=== PATIENT | female | born 1955 | race Caucasian/White ===

== ENCOUNTER → 2018-05-03 | Outpatient (CLI) | payer OTHER ==
--- NOTE | 2018-05-03 17:20 | BD ---
EXAMINATION TYPE: Axial Bone Density DATE OF EXAM: 05/03/2018 COMPARISON: 11.01.2015 CLINICAL HISTORY: 62 YR OLD FEMALE.....ICD-10 CODE: Z13.820 OSTEOPOROSIS SCREEN Height: 65.2 Weight: 180 FRAX RISK QUESTIONS: NOTHING TO NOTE HERE RISK FACTORS HISTORY OF: HX OF ANKLE FX....< 50 YRS OLD History of Wrist Fracture: YES, UNDER 50 YRS OLD Active: YES Diet low in dairy products/other sources of calcium: NO Postmenopausal woman: YES AT AGE 48 MEDICATIONS: Additional Medications: CALCIUM AND VIT D Additional History: NONE TO NOTE EXAM MEASUREMENTS: Bone mineral densitometry was performed using the [employer] System. Bone mineral density as measured about the Lumbar spine is: ----- L1-L4(G/cm2): 0.907 T Score Values are as follows: ----- L1: -2.5 ----- L2: -3.2 ----- L3: -1.9 ----- L4: -1.8 ----- L1-L4: -2.3 Bone mineral density has: Increased 1.3% since study of: 11.01.2015 Bone mineral density about the R hip (g/cm2): 0.794 Bone mineral density about the L hip (g/cm2): 0.783 T Score values are as follows: -----R Neck: -1.8 -----L Neck: -1.9 -----R Total: -1.7 -----L Total: -1.8 Bone mineral density has: REMAINED THE SAME 0.0% since study of: 11.01.2015 FRAX%s: THERE IS A 15.8% CHANCE OF A MAJOR OSTEOPOROTIC FX AND A 2.0% FOR HIP FX.....PROBABILITY O F FX IN 10 YRS IMPRESSION: Osteopenia (T Score between -2.5 and -1). However, note that measurements border on osteoporosis in t he lumbar spine. There is slightly increased risk of fracture and the patient may be considered for treatment. Re-Screen 2-5 years. NOTE: T-SCORE=SD OF THE YOUNG ADULT MEAN.
--- NOTE | 2018-05-05 10:54 | MM ---
Reason for exam: screening (asymptomatic). Last mammogram was performed 2 years and 6 months ago. History: Patient is postmenopausal. Physical Findings: A clinical breast exam by your physician is recommended on an annual basis and results should be correlated with mammographic findings. MG 3D Screening Mammo W/Cad Bilateral CC and MLO view(s) were taken. Prior study comparison: November 05, 2015, right breast MG 3d work up w/cad RT. November 01, 2015, bilateral MG screening mammo w CAD. The breast tissue is heterogeneously dense. This may lower the sensitivity of mammography. There is no discrete abnormality. Benign bilateral axillary lymph nodes redemonstrated. ASSESSMENT: Negative, BI-RAD 1 RECOMMENDATION: Routine screening mammogram of both breasts in 1 year.
== END | disposition home or self-care (01) ==
LOC: RADMAMWWP 09:31
PROVIDERS: ATTEND Family Medicine
DX: Z12.31 Encounter for screening mammogram for malignant neoplasm of breast (principal); M81.0 Age-related osteoporosis without current pathological fracture; M85.89 Other specified disorders of bone density and structure, multiple sites; Z13.820 Encounter for screening for osteoporosis
CPT/HCPCS: 77063; 77067; 77080

== ENCOUNTER → 2020-08-26 | Outpatient (CLI) | payer OTHER ==
--- NOTE | 2020-08-26 16:28 | BD ---
EXAMINATION TYPE: Axial Bone Density DATE OF EXAM: 08/26/2020 COMPARISON: 05/03/2018 CLINICAL HISTORY: Height: 65 IN Weight: 184 LBS FRAX RISK QUESTIONS: Secondary Osteoporosis: 3. Menopause before 45: TOTAL HYST AGE 43 RISK FACTORS HISTORY OF: Active: YES Diet low in dairy products/other sources of calcium: YES Postmenopausal woman: TOTAL HYST AGE 43 MEDICATIONS: Osteoporosis Medications: NOT NOW Which medication: Fosamax How Lon YEARS Additional Medications: CALCIUM , VIT D, EXAM MEASUREMENTS: Bone mineral densitometry was performed using the [employer] System. Bone mineral density as measured about the Lumbar spine is: ----- L1-L4(G/cm2): 0.927 T Score Values are as follows: ----- L2: -3.3 ----- L3: -2.2 ----- L4: -0.9 ----- L1-L4: -2.1 Bone mineral density has: Increased 3.3% since study of: 05/03/2018 Bone mineral density about the R hip (g/cm2): 0.756 Bone mineral density about the L hip (g/cm2): 0.755 T Score values are as follows: -----R Neck: -2.0 -----L Neck: -2.0 -----R Total: -1.6 -----L Total: -1.9 Bone mineral density has: Decreased -0.4% since study of: 05/03/2018 IMPRESSION: Osteopenia (T Score between -2.5 and -1). There is slightly increased risk of fracture and the patient may be considered for treatment. Re-Screen 2-5 years. NOTE: T-SCORE=SD OF THE YOUNG ADULT MEAN.
--- NOTE | 2020-08-27 09:47 | MM ---
Reason for exam: screening (asymptomatic). Last mammogram was performed 2 years and 4 months ago. History: Patient is postmenopausal. Physical Findings: A clinical breast exam by your physician is recommended on an annual basis and results should be correlated with mammographic findings. MG 3D Screening Mammo W/Cad Bilateral CC and MLO view(s) were taken. Prior study comparison: May 03, 2018, bilateral MG 3d screening mammo w/cad. November 05, 2015, right breast MG 3d work up w/cad RT. The breast tissue is heterogeneously dense. This may lower the sensitivity of mammography. There is no discrete abnormality. No significant changes when compared with prior studies. ASSESSMENT: Negative, BI-RAD 1 RECOMMENDATION: Routine screening mammogram of both breasts in 1 year.
== END | disposition home or self-care (01) ==
LOC: RADMAMWWP 08:45
PROVIDERS: ATTEND Family Medicine
DX: Z12.31 Encounter for screening mammogram for malignant neoplasm of breast (principal); M85.80 Other specified disorders of bone density and structure, unspecified site; Z78.0 Asymptomatic menopausal state
CPT/HCPCS: 77063; 77067; 77080

== ENCOUNTER → 2022-09-10 | Outpatient (CLI) | payer MEDICARE ==
--- NOTE | 2022-09-10 17:51 | BD ---
EXAMINATION TYPE: Axial Bone Density DATE OF EXAM: 09/10/2022 CLINICAL HISTORY: 67 years year old Female. ICD-10 CODE: M85.80 DISORDER OF BONE DENSITY Height: 65 Weight: 184.5 FRAX RISK QUESTIONS: Alcohol (3 or more units per day): no Family History (Parent hip fracture): no Glucocorticoids (More than 3mos): no (Ex: prednisone, prednisolone, methylprednisolone, dexamethasone, and hydrocortisone). History of Fracture in Adulthood: yes Secondary Osteoporosis: 1. Type 1 Diabetes: no 2. Hyperthyroidism: no 3. Menopause before 45: yes 4. Malnutrition: no 5. Chronic liver disease: no Rheumatoid Arthritis: no Current Tobacco Use: no RISK FACTORS HISTORY OF: History of Wrist Fracture: yes When: many years ago Surgery to Spine/Hip(right/left)/Wrist (right/left): no Family History of Osteoporosis: no Active: yes Diet low in dairy products/other sources of calcium: yes Postmenopausal woman: yes Lost more than 2 inches in height since high school: no MEDICATIONS: Additional History: EXAM MEASUREMENTS: Bone mineral densitometry was performed using the [employer] System. Bone mineral density as measured about the Lumbar spine is: ----- L1-L4(G/cm2): 0.909 T Score Values are as follows: ----- L1: -2.2 ----- L2: -3.0 ----- L3: -2.2 ----- L4: -2.0 ----- L1-L4: -2.3 Bone mineral density has: decreased -1.9 % since study of: 08.26.2020 Bone mineral density about the R hip (g/cm2): 0.752 Bone mineral density about the L hip (g/cm2): 0.732 T Score values are as follows: -----R Neck: -2.1 -----L Neck: -2.2 -----R Total: -1.7 -----L Total: -2.0 Bone mineral density has: decreased -1.1 % since study of: 08.26.2020 FRAX%s: The graph provided illustrates a 18.8% chance for a major osteoporotic fx and a 3.4% chance f or the hips probability for fx in 10 years time. IMPRESSION: Osteopenia (T Score between -2.5 and -1). There is slightly increased risk of fracture and the patient may be considered for treatment. Re-Screen 2-5 years. NOTE: T-SCORE=SD OF THE YOUNG ADULT MEAN.
--- NOTE | 2022-09-11 08:44 | MM ---
Reason for Exam: Screening (asymptomatic). Last mammogram was performed 2 year(s) and 1 month(s) ago. Patient History: Menarche at age 15. First Full-Term at age 25. Left ovary removed at age 44. Right ovary removed at age 44. Hysterectomy at age 44. Postmenopausal. Risk Values: Lavern 5 year model risk: 1.4%. NCI Lifetime model risk: 4.9%. Prior Study Comparison: 11/05/2015 Right Diagnostic Mammogram, [facility]. 05/03/2018 Bilateral Screening Mammogram, [facility]. 08/26/2020 Bilateral Screening Mammogram, [facility]. Tissue Density: The breast tissue is heterogeneously dense. This may lower the sensitivity of mammography. Findings: Analyzed By CAD. There is no suspicious group of microcalcifications or new suspicious mass in either breast. No significant change from prior examination. Overall Assessment: Negative, BI-RAD 1 Management: Screening Mammogram of both breasts in 1 year. A clinical breast exam by your physician is recommended on an annual basis and results should be correlated with mammographic findings. Electronically signed and approved by: Emmanuel Shea D.O.
== END | disposition home or self-care (01) ==
LOC: RADBDWWP 16:08
PROVIDERS: ATTEND Family Medicine
DX: Z12.31 Encounter for screening mammogram for malignant neoplasm of breast (principal); M85.89 Other specified disorders of bone density and structure, multiple sites; Z78.0 Asymptomatic menopausal state; Z90.721 Acquired absence of ovaries, unilateral
CPT/HCPCS: 77063; 77067; 77080

== ENCOUNTER → 2023-10-20 | Outpatient (CLI) | payer MEDICARE ==
[2023-10-20 15:31] LABS: Basophils # (A) 0.04 X 10*3/uL (0.00-0.10); Basophils % (A) 0.9 %; Eosinophils # (A) 0.15 X 10*3/uL (0.04-0.35); Eosinophils % (A) 3.4 %; HCT 40.4 % (37.2-46.3); HGB 13.3 g/dL (12.0-15.0); Lymphocytes # (A) 1.41 X 10*3/uL (0.90-5.00); Lymphocytes % (A) 31.7 %; MCH 30.9 pg (27.0-32.0); MCHC 32.9 g/dL (32.0-37.0); Mean Platelet Volume 11.1 FL (9.5-12.2); Monocytes # (A) 0.51 X 10*3/uL (0.20-1.00); Monocytes % (A) 11.5 %; NRBC Per 100 WBC 0 X 10*3/uL (0.00-0.01); Neutrophils # (A) 2.33 X 10*3/uL (1.80-7.70); Neutrophils % (A) 52.3 %; Platelet Count 309 X 10*3/uL (140-440); RDW 12.2 % (11.5-14.5); WBC 4.45 X 10*3/uL (4.50-10.00)
[2023-10-20 15:33] LABS: ALT 15 U/L (8-44); AST 14 U/L (13-35); Albumin 4.2 g/dL (3.8-4.9); Alkaline Phosphatase 69 U/L (41-126); Blood Urea Nitrogen 17.6 mg/dL (9.0-27.0); Calcium 8.9 mg/dL (8.7-10.3); Carbon Dioxide 27.4 mmol/L (21.6-31.8); Chloride 102 mmol/L (96-109); Chol/HDL Ratio 2.77 Ratio; Globulin 2.8 g/dL (1.6-3.3); Glucose 111 mg/dL (70-110); LDL Cholesterol,Calculated 111.3 mg/dL (0.0-131.0); Sodium 141 mmol/L (135-145); Total Bilirubin 0.4 mg/dL (0.3-1.2); VLDL Calculation 10.16 mg/dL (5.00-40.00)
== END | disposition home or self-care (01) ==
LOC: LABWHC1 07:07
PROVIDERS: ATTEND Family Medicine
DX: E78.5 Hyperlipidemia, unspecified (principal); M85.80 Other specified disorders of bone density and structure, unspecified site
CPT/HCPCS: 36415; 80053; 80061; 82306; 84443; 85025

== ENCOUNTER → 2023-11-15 | Outpatient (CLI) | payer MEDICARE ==
--- NOTE | 2023-11-16 08:23 | MM ---
Reason for Exam: Screening (asymptomatic). Last mammogram was performed 1 year(s) and 2 month(s) ago. Patient History: Menarche at age 15. First Full-Term at age 25. Left ovary removed at age 44. Right ovary removed at age 44. Hysterectomy at age 44. Postmenopausal. Risk Values: Lavern 5 year model risk: 1.4%. NCI Lifetime model risk: 4.8%. Prior Study Comparison: 05/03/2018 Bilateral Screening Mammogram, [facility]. 08/26/2020 Bilateral Screening Mammogram, [facility]. 09/10/2022 Bilateral MG 3D screening mammo w/cad, [facility]. Tissue Density: There are scattered fibroglandular densities. Findings: Analyzed By CAD. There is no suspicious group of microcalcifications or new suspicious mass. Overall Assessment: Negative, BI-RAD 1 Management: Screening Mammogram of both breasts in [address] [facility] will attempt to contact patient to return for supplemental views and ultrasound if indicated. Patient should continue monthly self-breast exams. A clinical breast exam by your physician is recommended on an annual basis. This exam should not preclude additional follow-up of suspicious palpable abnormalities. Note on Lavern scores and lifetime risk: 1. A Lavern score greater than 3% is considered moderate risk. If this is the case, consider specialist referral to assess eligibility for a risk reducing agent. 2. If overall lifetime risk for the development of breast cancer is 20% or higher, the patient may qualify for future screening with alternating mammogram and breast MRI. Electronically signed and approved by: Jose Tobias DO
== END | disposition home or self-care (01) ==
LOC: RADMAMWWP 14:33
PROVIDERS: ATTEND Family Medicine
DX: Z12.31 Encounter for screening mammogram for malignant neoplasm of breast (principal); Z78.0 Asymptomatic menopausal state
CPT/HCPCS: 77063; 77067